=== PATIENT | male | born 1975 | race Caucasian/White ===

== ENCOUNTER 2017-12-23 00:20 | Inpatient (IN) | payer MEDICARE ==
[~2017-12-23] VITALS: Ht 172.7 cm; Wt 76.9 kg
[2017-12-23] MEDS ORDERED: IPRATRPIUM/ALBUTEROL 0.5/2.5MG 3 ML NEBU. ONE ×2 (00:25→05:01)
[2017-12-23] MEDS ORDERED: DEXAMETHASONE SOD PHOS 10 MG/ML VIAL IV ONE (00:30)
[2017-12-23] MEDS ORDERED: IV NORMAL SALINE 1,000ML 1,000 ML IV ONE (00:30)
[2017-12-23] MEDS ORDERED: IPRATRPIUM/ALBUTEROL 0.5/2.5MG 3 ML NEBU. NEB ONE (00:30)
--- NOTE | 2017-12-23 01:12 | PHYS DOC ---
Past History Additional Past Medical Histor: blind Past Surgical History: Appendectomy Additional Past Surgical Histo: Eyes Smoking: Cigarettes Alcohol Use: None Drug Use: None Adult General Chief Complaint Chief Complaint: DYSPNEA/RESPIRATORY DISTRESS HPI HPI 42-year-old male who is a every day smoker presents with report of significant dyspnea with reported subjective fever/chills which started today. Patient recently is them redoing his kitchen ripping out the farooq which he started this weekend. Reports he went to go clean things up today and was not wearing a mask. This evening started to feel very short of breath with cough. Denies trauma. Denies leg swelling or calf tenderness. Denies chest pain. Denies history of DVT or PE. Denies diagnosis of CHF, emphysema, or COPD. Review of Systems Review of Systems Constitutional: Reports subjective fever and chills [] HENT: Reports some nasal congestion and sore throat [] Respiratory: Reports wheezing, cough, and shortness of breath [] Cardiovascular: Denies chest pain; reports palpitations GI: Denies abdominal pain, nausea, vomiting, or diarrhea [] : Denies dysuria or hematuria [] Musculoskeletal: Denies back pain or calf pain [] Integument: Denies rash or skin lesions [] Neurologic: Denies headache, focal weakness or sensory changes [] Complete systems were reviewed and found to be within normal limits, except as documented in this note. Current Medications Current Medications Current Medications Medications (Trade) Dose Ordered Sig/[facility] Start Time Stop Time Status Last Admin Dose Admin Albuterol/ Ipratropium (Duoneb) 3 ml 1X ONCE 12/23/17 00:30 12/23/17 00:31 UNV 12/23/17 00:31 3 ML Dexamethasone Sodium Phosphate (Decadron) 10 mg 1X ONCE 12/23/17 00:30 12/23/17 00:31 UNV 12/23/17 01:01 10 MG Sodium Chloride 1,000 ml @ 1,000 mls/hr 1X ONCE 12/23/17 00:30 12/23/17 01:29 UNV 12/23/17 00:30 1,000 MLS/HR Allergies Allergies Allergies Coded Allergies Type Severity Reaction Last Updated Verified No Known Drug Allergies 12/23/17 No Physical Exam Physical Exam Constitutional: Well developed, well nourished, mild respiratory distress, non- toxic appearance. [] HENT: Normocephalic, atraumatic, Neck: Normal range of motion, no tenderness, supple Cardiovascular: Heart rate tachycardic, CR < 2 sec Lungs & Thorax: Bilateral breath sounds equal, Coarse with scattered wheezes Abdomen: Soft, no tenderness Skin: Warm, dry, no erythema, no rash. [] Extremities: No calf tenderness, ROM intact, no edema. [] Neurologic: Alert and oriented X 3, normal motor function, normal sensory function Psychologic: Affect normal, judgement normal, mood- anxious Current Patient Data Vital Signs Vital Signs Date Time Temp Pulse Resp B/P (MAP) Pulse Ox O2 Delivery O2 Flow Rate FiO2 12/23/17 00:30 98 Room Air EKG EKG @ 00:48, sinus tachycardia at 113 bpm, no significant ST elevations or reciprocal changes, slight QRS(T) abnormality Radiology/Procedures Radiology/Procedures CXR: (Preliminary interpretation by ED physician): Bibasilar atelectasis noted. Course & Med Decision Making Course & Med Decision Making Pertinent Labs and Imaging studies reviewed. (See chart for details) Patient who is a every day smoker presents with dyspnea which started today. Patient recently exposed to dust from kitchen tear out cleanup which he performed without wearing a mask today. Patient with coarse breath sounds upon arrival. No leg swelling or calf tenderness appreciated. Patient tachycardic with some mild respiratory distress upon arrival. DuoNeb provided with some interval improvement of work of breathing. Patient continued to stay tachycardic. EKG stable. Labs obtained and posted to chart. Troponin within normal limits. BNP also within normal limits. D-dimer WNL. Creatinine elevated. IV fluid hydration provided. Chest x-ray without focal signs of pneumonia. Empiric antibiotics provided for bronchitis with concern given smoking history for superinfection. Blood cultures obtained. Patient noted to drop O2 Sats on RA down to 90% with movement (ie sitting up). Supplemental O2 therefore provided. Patient requiring admission for further evaluation and treatment. Discussed with Dr. Bell (hospitalist) who is in agreement with admission. Discussed findings and plan with patient and family, who acknowledge understanding and agreement. Dragon Disclaimer Dragon Disclaimer This electronic medical record was generated, in whole or in part, using a voice recognition dictation system. Departure Departure: Impression: Primary Impression: Bronchitis Additional Impressions: Hypoxia Acute renal insufficiency Disposition: ADMITTED INPATIENT Admitting Physician: Allison Bell Condition: GUARDED Referrals: PCP,NO (PCP) Critical Care Time Critical care time was 30 minutes which includes time at bedside, spent in discussion of patient's care with specialists and/or family members, with interpretation of laboratory and/or radiological studies and is exclusive of procedures. Problem Qualifiers MATHEW MORE DO Dec 23, 2017 01:12
[2017-12-23 01:22] LABS: BASO # 0.1 x10^3/uL (0.0-0.2); BASO % 1 % (0-3); EOS # 0.2 x10^3/uL (0.0-0.7); EOS % 2 % (0-3); HEMATOCRIT 46.7 % (39.0-53.0); HEMOGLOBIN 16.3 g/dL (13.0-17.5); LYMPH # 1.8 x10^3/uL (1.0-4.8); LYMPH % 19 % (24-48); MEAN CORPUSCULAR HEMOGLOBIN 33 pg (25-35); MEAN CORPUSCULAR HGB CONC 35 g/dL (31-37); MEAN CORPUSCULAR VOLUME 95 fL (79-100); MONO # 0.5 x10^3/uL (0.0-1.1); MONO % 5 % (0-9); NEUT % 73 % (31-73); PLATELET COUNT 272 x10^3/uL (140-400); RED BLOOD COUNT 4.91 x10^6/uL (4.30-5.70); RED CELL DISTRIBUTION WIDTH 13.4 % (11.5-14.5); WHITE BLOOD COUNT 9.5 x10^3/uL (4.0-11.0)
[2017-12-23 01:34] LABS: BACTERIA,URINE 0 /HPF (0-FEW); BILIRUBIN,URINE NEG (NEG); CLARITY,URINE CLEAR; COLOR,URINE YELLOW; GLUCOSE,URINE NEG (NEG); NITRITE,URINE NEG (NEG); RBC,URINE OCC /HPF (0-2); SQUAMOUS EPITHELIAL CELL,UR OCC /LPF; UROBILINOGEN,URINE 2 mg/dL (0.2 mg/dL); WBC,URINE OCC /HPF (0-4)
[2017-12-23 01:51] LABS: ALBUMIN 3.5 g/dL (3.4-5.0); CALCIUM 8.7 mg/dL (8.5-10.1); CREATININE 1.4 mg/dL (0.7-1.3); GFR 55.6; MAGNESIUM 1.9 mg/dL (1.8-2.4); POTASSIUM 3.6 mmol/L (3.5-5.1); TOTAL BILIRUBIN 0.5 mg/dL (0.2-1.0); TOTAL PROTEIN 6.9 g/dL (6.4-8.2)
[2017-12-23] MEDS ORDERED: ONDANSETRON PF 4 MG/2 ML VIAL. IV PRN (02:30)
[2017-12-23] MEDS ORDERED: ASPIRIN 325 MG TABLET PO ONE (02:30)
[2017-12-23] MEDS ORDERED: ACETAMINOPHEN 325 MG TABLET PO PRN (02:30)
[2017-12-23] MEDS ORDERED: cefTRIAXone SODIUM 1 GM VIAL IV ONE (02:33)
[2017-12-23] MEDS ORDERED: IV NORMAL SALINE 50ML 50 ML ONE (02:36)
[2017-12-23] MEDS ORDERED: cefTRIAXone IV Push 1 GM VIAL. IVP ONE (02:45)
[2017-12-23] MEDS ORDERED: AZITHROMYCIN 500 MG in IV NORMAL SALINE 250ML 250 ML IV ONE (02:45)
[2017-12-23] MEDS ORDERED: AZITHROMYCIN 500 MG VIAL. IV ONE (02:59)
[2017-12-23] MEDS ORDERED: IV NORMAL SALINE 250ML 250 ML ONE (02:59)
[2017-12-23] MEDS ORDERED: NICOTINE 21MG PATCH. TD ONE (03:45)
--- NOTE | 2017-12-23 03:58 | EKG ---
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
[2017-12-23 04:36] VITALS: BP 152/72
[2017-12-23] MEDS: IPRATRPIUM/ALBUTEROL 0.5/2.5MG 3 ML NEBU. NEB SCH ×4 (05:10→21:44)
[2017-12-23] MEDS ORDERED: Influenza vaccine per PROTOCOL. MC PRN (06:15)
[2017-12-23 06:41] VITALS: BP 118/69
[2017-12-23 07:52] LABS: ALBUMIN 3.1 g/dL (3.4-5.0); CALCIUM 8.4 mg/dL (8.5-10.1); CREATININE 1.3 mg/dL (0.7-1.3); GFR 60.5; POTASSIUM 3.6 mmol/L (3.5-5.1); TOTAL BILIRUBIN 0.2 mg/dL (0.2-1.0); TOTAL PROTEIN 6.3 g/dL (6.4-8.2)
--- NOTE | 2017-12-23 08:06 | RAD ---
Single view of the chest. 12/23/2017 12:26 AM Indication: RESPIRATORY DISTRESS, COUGH Comparison: Respiratory distress, cough Findings: There is no focal consolidation. There is no pleural effusion or pneumothorax. The cardiomediastinal silhouette and pulmonary vasculature are within normal limits. No acute osseous abnormalities are seen. Impression: No evidence of acute cardiopulmonary process. Electronically signed by: Juvencio Blair MD (12/23/2017 8:03 AM) [id number]
[2017-12-23 10:41] VITALS: BP 117/70
--- NOTE | 2017-12-23 11:31 | HP ---
ADMIT DATE: 12/23/2017 HISTORY OF PRESENT ILLNESS: The patient is a 42-year-old male patient who was seen in the Emergency Room with a complaint of shortness of breath, cough, and left-sided chest pain, subjective fever, chills. He said that he had with his nephew in remodeling his kitchen ripping out farooq, which he started this weekend. He reports he went to go clean things without wearing his mask last Wednesday and since then he developed shortness of breath with cough. Denied any fall or trauma. He did complain of left-sided chest pain and was extensively investigated in the Emergency Room; however, he has no leukocytosis; however, his creatinine was slightly elevated and his chest x-ray showed that no focal consolidation, no pleural effusion or pneumothorax. He was admitted for treatment of acute respiratory distress likely due to acute bronchitis. He has also acute hypoxic respiratory failure and acute renal insufficiency. 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 ALLERGIES: He has no known drug allergies. MEDICATIONS: He is only on zyfs-cjx-tstaxoh medication like Tylenol or Nyquil. FAMILY HISTORY: He has 2 brothers who are younger, both healthy. He does not know his father well. His mother is alive at the age of 62, has hypertension. She currently lives in [place]. SOCIAL HISTORY: He is , has a son and a daughter. He smokes a pack a day, drinks alcohol very occasionally. Does not use any drugs. He is on disability. REVIEW OF SYSTEMS: He has obviously blind in both eyes, but denied any earache, tinnitus, or sensorineural deafness. Denied any nosebleeds, stuffy nose, or postnasal drip. Denied any sore throat, sore tongue, toothache, hoarseness of voice, or difficulty swallowing. Denied any nausea, vomiting, diarrhea, or constipation. Denied any hematemesis, melena, or hematochezia. He denied any dysuria, frequency, hematuria. He did complain of left-sided chest pain that is aggravated by coughing and taking a deep breath. PHYSICAL EXAMINATION: GENERAL: On examining him, he looked well. He was actually in respiratory distress. He was tachypneic, tachycardic. VITAL SIGNS: His heart rate was 121, blood pressure was 124/65, temperature was 98.3, respiratory rate was 30, and his oxygen saturation was 90% when he sits up. HEAD, EYES, EARS, NOSE, AND THROAT: Showed normocephalic, atraumatic. NECK: Supple. HEART: Showed normal first and second heart sounds with no gallop, rub, or murmur. CHEST: Clear to auscultation. No crepitation or rhonchi. ABDOMEN: Distended, soft, nontender. NEUROLOGIC: Examination of the chest showed central trachea, equal bilateral expansion, air entry, vesicular sounds with crepitation mostly in the left side posteriorly, very few scattered rhonchi. ABDOMEN: Distended, soft, nontender. NEUROLOGIC: He was blind in both eyes, but otherwise all other cranial nerves are intact. EXTREMITIES: He moves extremities without difficulty, ambulates without assistance or assistive devices. LABORATORY DATA: His lab work when he was initially seen, sodium 142, potassium 3.6, chloride 105, bicarbonate 26, anion gap of 11, BUN 17, creatinine 1.4, estimated GFR was 55 mL per minute. His glucose was 114, calcium was 8.7, magnesium was 1.9. Total bilirubin, AST, ALT, alkaline phosphatase were normal. His total protein was 6.9, albumin 3.5. His lactic acid is only 1.7. His white cell count was 9500, hemoglobin 16, hematocrit 46, MCV 95, and platelet count 272,000. His D-dimer was 0.37 mg/dL. Urinalysis was essentially unremarkable and the urine was negative for protein, blood, nitrite, leukocyte esterase. There are no rbc's, no wbc's, and no bacteria. His chest x-ray showed that the patient has no focal consolidation. There is no pleural effusion or pneumothorax. The cardiomediastinal silhouette and pulmonary vasculature are within normal limits. No acute osseous abnormalities are seen. IMPRESSION: In summary, this is a 42-year-old male patient, blind due to congenital glaucoma, who was assisting his nephew to demolish ceiling wall of his kitchen and apparently when he did the cleanup, he did not use mask and developed acute respiratory distress, cough, shortness of breath, chest tightness, and left-sided chest pain. Plan is to continue with nebulized albuterol and Atrovent. Continue with the pain management. Continue with IV antibiotics and IV steroids. I will follow him closely and decide the further management accordingly. IZABELLA BUCKLEY MD DR: IRISH/pallavi JOB#: [id number] / [id number]
[2017-12-23] MEDS: IV NORMAL SALINE 1,000ML 1,000 ML IV SCH ×2 (11:34→20:54)
[2017-12-23 14:24] VITALS: BP 113/64
[2017-12-23] MEDS: methylPREDNISolone SOD SUCC PF 40 MG/ML VIAL. IV SCH ×2 (15:12→21:58)
[2017-12-23 18:38] VITALS: BP 109/62
[2017-12-23] MEDS: LACTOBACILLUS RHAMNOSUS GG 1 CAPSULE. PO SCH (20:54)
[2017-12-23] MEDS ORDERED: NICOTINE 21MG PATCH. TD PRN (21:45)
[2017-12-23 23:04] VITALS: BP 117/68
[2017-12-24] MEDS: methylPREDNISolone SOD SUCC PF 40 MG/ML VIAL. IV SCH (05:46)
[2017-12-24 05:53] VITALS: BP 108/65
[2017-12-24 06:10] LABS: BASO % 0 % (0-3); EOS % 0 % (0-3); HEMATOCRIT 43.9 % (39.0-53.0); HEMOGLOBIN 14.9 g/dL (13.0-17.5); LYMPH # 0.8 x10^3/uL (1.0-4.8); LYMPH % 6 % (24-48); MEAN CORPUSCULAR HEMOGLOBIN 32 pg (25-35); MEAN CORPUSCULAR HGB CONC 34 g/dL (31-37); MEAN CORPUSCULAR VOLUME 96 fL (79-100); MONO # 0.3 x10^3/uL (0.0-1.1); MONO % 2 % (0-9); NEUT # 12.5 x10^3uL (1.8-7.7); NEUT % 91 % (31-73); PLATELET COUNT 332 x10^3/uL (140-400); RED BLOOD COUNT 4.59 x10^6/uL (4.30-5.70); RED CELL DISTRIBUTION WIDTH 13.6 % (11.5-14.5); WHITE BLOOD COUNT 13.7 x10^3/uL (4.0-11.0)
[2017-12-24 06:17] LABS: CALCIUM 8.9 mg/dL (8.5-10.1); GFR 81.9; POTASSIUM 3.9 mmol/L (3.5-5.1)
[2017-12-24] MEDS: LACTOBACILLUS RHAMNOSUS GG 1 CAPSULE. PO SCH (08:56)
[2017-12-24] MEDS ORDERED: AZITHROMYCIN 250 MG TABLET. PO SCH (09:00)
[2017-12-24] MEDS: IV NORMAL SALINE 1,000ML 1,000 ML IV SCH (10:06)
[2017-12-24] MEDS ORDERED: AZIT250T PO (10:56)
[2017-12-24] MEDS ORDERED: CEFP200T PO (10:56)
[2017-12-24] MEDS ORDERED: IRON SUCROSE COMPLEX 500 MG in IV NORMAL SALINE 250ML 250 ML IV ONE (11:15)
--- NOTE | 2017-12-24 20:53 | DS ---
DATE OF DISCHARGE: 12/24/2017 HOSPITAL COURSE: The patient is a 42-year-old patient, was admitted with a complaint of shortness of breath, cough and left-sided chest pain and subjective fever and chills. He said that he was working with his nephew in remodeling their kitchen, ripping out farooq, which he stated started last weekend. He reports he went to go clean things without wearing his mask and since then he developed this shortness of breath with cough. He denied any fall or trauma. He did complain of left-sided chest pain and was extensively investigated in the Emergency Room. He has no leukocytosis; however, his creatinine was slightly elevated and his chest x-ray showed no focal consolidation, pleural effusion, pneumonitis, pneumothorax; however, he seems to be in acute bronchitis and acute hypoxic respiratory failure as well as acute kidney injury, was started on IV fluid, IV steroids and bronchodilators as well as antibiotics and did actually very well. PHYSICAL EXAMINATION: GENERAL: When I saw him today, he was resting slightly propped up in bed, in no apparent distress. There was no pallor, jaundice, cyanosis, or thyromegaly. No jugular venous distension. No lower limb edema. VITAL SIGNS: His heart rate was 93, blood pressure was 108/65, temperature was 97.8, respiratory rate 20 0and oxygen saturation was 91%. HEAD, EYES, EARS, NOSE AND THROAT: Showed normocephalic, atraumatic. NECK: Supple. HEART: Showed normal first and second sounds. No gallop, rub or murmur. CHEST: Clear to auscultation. No crepitation or rhonchi. ABDOMEN: Distended, soft, nontender. No guarding or rigidity. No organomegaly. Hernial orifice intact. Bowel sounds normal. NEUROLOGIC: He was blind in both eyes due to congenital glaucoma; however, all other cranial nerves are intact. He moves extremities without difficulty, ambulates without assistance or assistive devices. His intake was 3400. LABORATORY DATA: Showed a white cell count of 13,700, hemoglobin 15, hematocrit 44, MCV 96 and platelet count of 332,000 with normal manual differential. His chemistry showed a serum sodium 139, potassium 3.9, chloride 105, bicarbonate 25, anion gap of 9, BUN 14, creatinine 1. Estimated GFR was 82 mL per minute. His glucose 141, calcium was 8.9. His total bilirubin, AST, ALT, alkaline phosphatase were normal. Total protein was 6.3, albumin 3.1. His D-dimer was 0.37. Urinalysis was unremarkable and his blood cultures were both negative. DISCHARGE MEDICATIONS: The patient was discharged home to continue on Zithromax 250 mg once a day for 7 days and cefpodoxime 200 mg twice a day as well as Medrol Dosepak. FINAL DISCHARGE DIAGNOSES: 1. Acute bronchitis. 2. Acute hypoxic respiratory failure. 3. Acute kidney injury. 4. 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 5. Multicentric melanoma resected surgically and also treated with radiation treatment. IZABELLA BUCKLEY MD DR: IRISH/pallavi JOB#: [id number] / [id number]
== END 2017-12-24 12:30 | disposition home or self-care (01) | DRG 682 ==
LOC: ER 00:20 → 1 SOUTH 03:23
PROVIDERS: ADMIT Internal Medicine; ATTEND Internal Medicine
DX: N17.9 Acute kidney failure, unspecified (principal); J96.01 Acute respiratory failure with hypoxia; J20.9 Acute bronchitis, unspecified; F17.210 Nicotine dependence, cigarettes, uncomplicated; H54.3 Unqualified visual loss, both eyes; Z82.49 Family history of ischemic heart disease and other diseases of the circulatory system; Q15.0 Congenital glaucoma; Z85.820 Personal history of malignant melanoma of skin; Z90.49 Acquired absence of other specified parts of digestive tract; Z92.3 Personal history of irradiation; Z79.899 Other long term (current) drug therapy; Z23 Encounter for immunization
CPT/HCPCS: 36415; 71046; 80048; 80053; 81001; 82553; 83605; 83735; 83880; 84484; 85025; 85379; 87040; 90471; 90756; 93005; 94640; 96361; 96374; 96375; J0456; J0696; J1100; J2920; J3010; J7050; J7620; 99285-25; J7030; Q2035